=== PATIENT | female | born 1990 | race Caucasian/White ===

== ENCOUNTER 2020-09-01 20:00 | Emergency (ER) | payer MEDICAID ==
[~2020-09-01] VITALS: Ht 167.6 cm; Wt 78.0 kg
[2020-09-01 20:17] VITALS: BP 143/106
--- NOTE | 2020-09-01 20:21 | NUR ---
To ED bed 03
--- NOTE | 2020-09-01 20:30 | NUR ---
RECEIVED IN BED 3 WITH C/O VAGINAL BLEEDING . PT STATES SHE IS BUT DUE TO PRIOR CONTROL IS UNABLE TO DETERMINE LMP.
[2020-09-01 21:15] LABS: BASOPHILS % (AUTO) 0.2 % (0.0-2.0); EOSINOPHILS # (AUTO) 0.1 K/uL (0-0.4); EOSINOPHILS % (AUTO) 0.9 % (0.0-4.0); HEMATOCRIT 34.9 % (36-48); LYMPHOCYTES % (AUTO) 24.3 % (20.5-51.1); MEAN CORPUSCULAR HEMOGLOBIN 29 pg (27-31); MEAN CORPUSCULAR HGB CONC 34 g/dL (33-37); MEAN CORPUSCULAR VOLUME 85.2 fL (80-94); MONOCYTES # (AUTO) 0.7 K/uL (0.8-1.0); MONOCYTES % (AUTO) 5.7 % (1.7-9.3); NEUTROPHILS # (AUTO) 8.4 K/uL (1.8-7.7); NEUTROPHILS % (AUTO) 68.9 % (42.2-75.2); PLATELET COUNT (AUTO) 264 K/uL (140-450); RED CELL DISTRIBUTION WIDTH 13.1 % (11.6-13.7); WHITE BLOOD COUNT (AUTO) 12.2 K/uL (4.8-10.8)
[2020-09-01 21:32] LABS: ALBUMIN 3.7 g/dL (3.4-5.0); ANION GAP 11.7 (8-16); CARBON DIOXIDE 25.9 mmol/L (21-32); CREATININE 0.7 mg/dL (0.6-1.3); POTASSIUM 3.6 mmol/L (3.5-5.1); TOTAL BILIRUBIN 0.3 mg/dL (0.0-1.0)
--- NOTE | 2020-09-01 22:00 | NUR ---
UA OBTAINED, DIPPED, RESULTS TO CHART
[2020-09-01 22:12] LABS: APPEARANCE,URINE CLEAR (CLEAR); BILIRUBIN,URINE NEGATIVE (NEGATIVE); BLOOD, URINE TRACE-I (NEGATIVE); COLOR,URINE YELLOW (YELLOW); LEUKOCYTE ESTERASE ,URINE NEGATIVE (NEGATIVE); NITRITE, URINE NEGATIVE (NEGATIVE); PH,URINE 5.5 (5.0-9.0); UGLUCOSE NEGATIVE (NEGATIVE)
[2020-09-01 22:51] LABS: RBC,URINE 0-5 /HPF (0-5); WBC,URINE 0-5 /HPF (0-5)
[2020-09-01 23:25] VITALS: BP 143/106
--- NOTE | 2020-09-01 23:25 | NUR ---
Patient discharged with v/s stable. Written and verbal after care instructions given and explained. Patient verbalized understanding. Ambulatory with steady gait. All questions addressed prior to discharge. Advised to follow up with PMD.
== END 2020-09-01 23:25 | disposition home or self-care (01) ==
LOC: MED 20:00
DX: O46.8X1 Other antepartum hemorrhage, first trimester (principal); Z3A.01 Less than 8 weeks gestation of pregnancy
CPT/HCPCS: 36415; 76815; 76817; 80053; 81001; 81025; 84702; 85025; 86900; 86901; 87086; 99285

== ENCOUNTER 2020-09-03 11:06 | Emergency (ER) | payer MEDICAID ==
[~2020-09-03] VITALS: Ht 167.6 cm; Wt 77.6 kg
[2020-09-03 11:09] VITALS: BP 117/88
--- NOTE | 2020-09-03 11:10 | NUR ---
Patient to bed 8. RN evaluating the patient at bedside.
--- NOTE | 2020-09-03 11:50 | NUR ---
Dr. Osorio is evaluating the patient at bedside.
[2020-09-03 12:32] LABS: BASOPHILS % (AUTO) 0.3 % (0.0-2.0); EOSINOPHILS # (AUTO) 0.1 K/uL (0-0.4); EOSINOPHILS % (AUTO) 1.2 % (0.0-4.0); HEMATOCRIT 34.2 % (36-48); HEMOGLOBIN 11.8 g/dL (12.0-16.0); LYMPHOCYTES # (AUTO) 2.2 K/uL (2.5-16.5); LYMPHOCYTES % (AUTO) 25.5 % (20.5-51.1); MEAN CORPUSCULAR HEMOGLOBIN 30 pg (27-31); MEAN CORPUSCULAR HGB CONC 34 g/dL (33-37); MEAN CORPUSCULAR VOLUME 85.7 fL (80-94); MONOCYTES # (AUTO) 0.5 K/uL (0.8-1.0); MONOCYTES % (AUTO) 6.2 % (1.7-9.3); NEUTROPHILS # (AUTO) 5.8 K/uL (1.8-7.7); NEUTROPHILS % (AUTO) 66.8 % (42.2-75.2); PLATELET COUNT (AUTO) 249 K/uL (140-450); RED BLOOD CELL COUNT(AUTO) 3.99 MIL/uL (4.20-5.40); RED CELL DISTRIBUTION WIDTH 12.9 % (11.6-13.7); WHITE BLOOD COUNT (AUTO) 8.6 K/uL (4.8-10.8)
[2020-09-03] MEDS ORDERED: ACETAMINOPHEN EXTRA STRENGTH 500 MG TAB PO ONE (12:55)
--- NOTE | 2020-09-03 13:01 | NUR ---
US tech at bedside for exam.
[2020-09-03] MEDS ORDERED: IBUP-2213 PO ×2 (14:17→14:29)
[2020-09-03] MEDS ORDERED: [UNRECOGNIZED DRUG - CODE] PO ×2 (14:17→14:29)
[2020-09-03 14:34] VITALS: BP 113/68
== END 2020-09-03 14:30 | disposition home or self-care (01) ==
LOC: MED 11:06
DX: O03.4 Incomplete spontaneous abortion without complication (principal); Z79.899 Other long term (current) drug therapy; Z3A.01 Less than 8 weeks gestation of pregnancy
CPT/HCPCS: 36415; 76817; 81025; 84702; 85025; 99284

== ENCOUNTER 2020-11-08 12:11 | Emergency (ER) | payer MEDICAID ==
[~2020-11-08] VITALS: Ht 165.1 cm; Wt 78.9 kg
[~2020-11-08 12:11] MED LIST: IBUP-2213 PO; [UNRECOGNIZED DRUG - CODE] PO
[2020-11-08 12:28] VITALS: BP 145/74
--- NOTE | 2020-11-08 13:25 | NUR ---
PT TAKEN TO X RAY.
--- NOTE | 2020-11-08 13:28 | NUR ---
Cora iverson in EDM - 11/08/20 at 1331 by [facility] 30F BIB SELF C/O SOB, COUGH, FEVER ,RUNNY NOSE, HASORE X TODAY, TOOK TYLENOL AT 8AM.
--- NOTE | 2020-11-08 13:28 | NUR ---
30F BIB SELF C/O SOB, COUGH, FEVER ,RUNNY NOSE, HENRY & SORE THROAT X TODAY, TOOK TYLENOL AT 8AM.
--- NOTE | 2020-11-08 13:30 | NUR ---
COVID SWAB SENT TO LAB.
[2020-11-08] MEDS ORDERED: GUAI1TAB PO (14:46)
[2020-11-08] MEDS ORDERED: DEXAMETHASONE 4 MG TAB PO ONE (14:50)
[2020-11-08] MEDS ORDERED: DEXAMETHASONE 4 MG TAB ONE (14:51)
== END 2020-11-08 14:50 | disposition home or self-care (01) ==
LOC: MED 12:11
DX: B34.9 Viral infection, unspecified (principal); Z20.822 Contact with and (suspected) exposure to COVID-19; Z79.899 Other long term (current) drug therapy
CPT/HCPCS: 71045; 87426; 99284; U0003

== ENCOUNTER 2021-07-04 20:10 | Observation (INO) | payer MEDICAID, SELFPAY ==
[~2021-07-04] VITALS: Ht 167.6 cm; Wt 81.6 kg
[~2021-07-04 20:10] MED LIST changes: +GUAI1TAB PO
[2021-07-04] MEDS ORDERED: ACETAMINOPHEN 325 MG TAB PO SCH (21:15)
[2021-07-04] MEDS ORDERED: cefTRIAXone 1,000 MG in LIDOCAINE MPF 1% 2.1 ML IM SCH (21:15)
[2021-07-04] MEDS ORDERED: LIDOCAINE MPF 1% 10 MG/ML VIAL INJ SCH (21:15)
[2021-07-04] MEDS ORDERED: cefTRIAXone 1,000 MG VIAL ONE (21:23)
[2021-07-04] MEDS ORDERED: LIDOCAINE 1% 500 MG/50 ML VIAL ONE (21:24)
[2021-07-04] MEDS ORDERED: ACETAMINOPHEN 325 MG TAB ONE (21:27)
[2021-07-04 22:12] VITALS: BP 113/68
== END 2021-07-04 22:00 | disposition home or self-care (01) ==
LOC: MLD 20:10
PROVIDERS: ADMIT Obstetrics & Gynecology; ATTEND Obstetrics & Gynecology
DX: O23.43 Unspecified infection of urinary tract in pregnancy, third trimester (principal); N39.0 Urinary tract infection, site not specified; Z3A.31 31 weeks gestation of pregnancy
CPT/HCPCS: 59025; 81000; 96372; G0378; J0696; J2001

== ENCOUNTER 2021-09-03 09:30 | Inpatient (IN) | payer MEDICAID ==
[~2021-09-03] VITALS: Ht 167.6 cm; Wt 83.0 kg
[2021-09-03] MEDS ORDERED: ONDANSETRON 4 MG/2 ML VIAL IVP PRN (09:55)
[2021-09-03] MEDS ORDERED: OXYTOCIN 20 UNITS in LACTATED RINGERS 1,000 ML IV SCH (09:55)
[2021-09-03] MEDS ORDERED: MORPHINE SULFATE 5 MG/ML VIAL IVP PRN (09:55)
[2021-09-03 10:00] VITALS: BP 137/80
[2021-09-03 10:32] LABS: BASOPHILS % (AUTO) 0.1 % (0.0-2.0); EOSINOPHILS # (AUTO) 0.1 K/uL (0-0.4); EOSINOPHILS % (AUTO) 0.7 % (0.0-4.0); HEMATOCRIT 30.2 % (36-48); LYMPHOCYTES # (AUTO) 1.9 K/uL (2.5-16.5); LYMPHOCYTES % (AUTO) 21.2 % (20.5-51.1); MEAN CORPUSCULAR HEMOGLOBIN 26 pg (27-31); MEAN CORPUSCULAR HGB CONC 33 g/dL (33-37); MEAN CORPUSCULAR VOLUME 78.1 fL (80-94); MONOCYTES # (AUTO) 0.5 K/uL (0.8-1.0); MONOCYTES % (AUTO) 5.8 % (1.7-9.3); NEUTROPHILS # (AUTO) 6.6 K/uL (1.8-7.7); NEUTROPHILS % (AUTO) 72.2 % (42.2-75.2); PLATELET COUNT (AUTO) 247 K/uL (140-450); RED BLOOD CELL COUNT(AUTO) 3.86 MIL/uL (4.20-5.40); RED CELL DISTRIBUTION WIDTH 14.7 % (11.6-13.7); WHITE BLOOD COUNT (AUTO) 9.1 K/uL (4.8-10.8)
[2021-09-03 11:07] LABS: ALBUMIN 2.5 g/dL (3.4-5.0); ANION GAP 14.6 (8-16); CREATININE 0.6 mg/dL (0.6-1.3); POTASSIUM 3.6 mmol/L (3.5-5.1); TOTAL BILIRUBIN 0.3 mg/dL (0.0-1.0)
[2021-09-03 11:44] LABS: APPEARANCE,URINE CLEAR (CLEAR); BILIRUBIN,URINE NEGATIVE (NEGATIVE); BLOOD, URINE NEGATIVE (NEGATIVE); COLOR,URINE YELLOW (YELLOW); LEUKOCYTE ESTERASE ,URINE NEGATIVE (NEGATIVE); NITRITE, URINE NEGATIVE (NEGATIVE); UGLUCOSE NEGATIVE (NEGATIVE)
[2021-09-03] MEDS: LACTATED RINGERS 1,000 ML IV SCH ×2 (13:06→17:55)
[2021-09-03] MEDS ORDERED: MORPHINE SULFATE 10 MG/ML VIAL ONE (15:46)
[2021-09-03 15:52] VITALS: BP 135/69
[2021-09-03] MEDS ORDERED: ROPIVACAINE 0.2%/NS PREMIX 200 ML EPI ONE (17:54)
[2021-09-03] MEDS ORDERED: fentaNYL citrate 0.05 MG/ML VIAL ONE (17:55)
[2021-09-03] MEDS ORDERED: OXYTOCIN 20 UNITS/LR PREMIX 1,000 ML IV ONE (19:31)
[2021-09-03] MEDS ORDERED: TEMAZEPAM 15 MG CAP PO PRN (21:50)
[2021-09-03] MEDS ORDERED: METHYLERGONOVINE 0.2 MG TAB PO PRN (21:50)
[2021-09-03] MEDS ORDERED: OXYTOCIN 10 UNITS/ML VIAL IM PRN (21:50)
[2021-09-03] MEDS ORDERED: METHYLERGONOVINE 0.2 MG/ML AMP IM PRN (21:50)
[2021-09-03] MEDS ORDERED: BENZOCAINE/MENTHOL 20%-0.5% 60 GM CAN TP PRN (21:50)
[2021-09-03] MEDS ORDERED: oxyCODONE/APAP 5/325 MG 1 TAB TAB PO PRN (21:50)
[2021-09-04 05:13] LABS: HEMATOCRIT 29.4 % (36-48); HEMOGLOBIN 9.8 g/dL (12.0-16.0)
[2021-09-04] MEDS: IBUPROFEN 800 MG TAB PO PRN ×2 (05:33→13:16)
[2021-09-04] MEDS ORDERED: DOCUSATE SOD/SENNA 50/8.6 MG 1 TAB PO SCH (21:00)
[2021-09-04] MEDS: oxyCODONE/APAP 5/325 MG 1 TAB TAB PO PRN (21:06)
[2021-09-05] MEDS: IBUPROFEN 800 MG TAB PO PRN ×2 (04:19→12:25)
[2021-09-05] MEDS: oxyCODONE/APAP 5/325 MG 1 TAB TAB PO PRN (20:52)
== END 2021-09-05 23:00 | disposition home or self-care (01) | DRG 560 ==
LOC: MFCC 09:30 → OBSVTOIN 11:03 → MFCC 09-04 00:45
PROVIDERS: ADMIT Obstetrics & Gynecology; ATTEND Obstetrics & Gynecology
PROC: 10E0XZZ Delivery of Products of Conception, External Approach (ICD-10-PCS; principal; 2021-09-03)
PROC: 10907ZC Drainage of Amniotic Fluid, Therapeutic from Products of Conception, Via Natural or Artificial Opening (ICD-10-PCS; 2021-09-03)
PROC: 3E0R3BZ Introduction of Anesthetic Agent into Spinal Canal, Percutaneous Approach (ICD-10-PCS; 2021-09-03)
PROC: 00HU33Z Insertion of Infusion Device into Spinal Canal, Percutaneous Approach (ICD-10-PCS; 2021-09-03)
DX: O77.0 Labor and delivery complicated by meconium in amniotic fluid (principal); Z37.0 Single live birth; Z20.822 Contact with and (suspected) exposure to COVID-19; Z3A.39 39 weeks gestation of pregnancy
CPT/HCPCS: 36415; 51702; 59409; 80053; 81003; 85018; 85025; 85610; 85730; 86592; 86886; 86900; 86901; 90715; J2270; J2405; J2590; J2795; J3010

== ENCOUNTER 2022-11-26 17:25 | Emergency (ER) | payer MEDICAID ==
[~2022-11-26] VITALS: Ht 165.1 cm; Wt 81.6 kg
[2022-11-26 17:34] VITALS: BP 129/79; PULSE 90; RESP 20; TEMP 98.2; O2SAT 99
--- NOTE | 2022-11-26 17:58 | NUR ---
PA EVALUATING THE PT IN TRIAGE.
--- NOTE | 2022-11-26 17:59 | NUR ---
PT TAKEN TO RADIOLOGY FOR X-RAY.
[2022-11-26] MEDS ORDERED: IBUPROFEN 600 MG TAB PO ONE (19:30)
[2022-11-26] MEDS ORDERED: IBUP-2213 PO (19:34)
--- NOTE | 2022-11-26 19:52 | NUR ---
PER PT IS CERTAIN THAT SHE IS NOT AND IS WILLING TO TAKE IBUPROFEN WITHOUT A TEST
[2022-11-26 20:06] VITALS: BP 129/79; PULSE 90; RESP 20; TEMP 98.2; O2SAT 99
--- NOTE | 2022-11-26 20:06 | NUR ---
Pain reassessment to early to be done at this time due to discharge at 2006.
== END 2022-11-26 20:06 | disposition home or self-care (01) ==
LOC: MED 17:25
DX: S93.402A Sprain of unspecified ligament of left ankle, initial encounter (principal); S93.602A Unspecified sprain of left foot, initial encounter; R03.0 Elevated blood-pressure reading, without diagnosis of hypertension; Z90.49 Acquired absence of other specified parts of digestive tract; Z98.890 Other specified postprocedural states; Z79.899 Other long term (current) drug therapy; X58.XXXA Exposure to other specified factors, initial encounter; Y93.89 Activity, other specified; Y92.89 Other specified places as the place of occurrence of the external cause; Y99.8 Other external cause status
CPT/HCPCS: 29515; 73610; 73630; 99284

== ENCOUNTER 2023-10-07 20:25 | Emergency (ER) | payer MEDICAID ==
[~2023-10-07] VITALS: Ht 167.6 cm; Wt 86.6 kg
[~2023-10-07 20:25] MED LIST changes: -GUAI1TAB PO; -[UNRECOGNIZED DRUG - CODE] PO
[2023-10-07 20:26] VITALS: BP 138/90; PULSE 96; RESP 16; TEMP 97.8; O2SAT 100
[2023-10-07 20:38] VITALS: BP 138/90; PULSE 96; RESP 16; TEMP 97.8; O2SAT 100
[2023-10-07] MEDS: PROMETH/CODEINE 6.25-10MG/5ML 5 ML UDC PO ONE (20:54)
[2023-10-07] MEDS ORDERED: FLONAS NS (21:54)
[2023-10-07] MEDS ORDERED: ACET-2619 PO (21:54)
[2023-10-07] MEDS ORDERED: PROM118S5 PO (21:54)
== END 2023-10-07 22:06 | disposition home or self-care (01) ==
LOC: MED 20:25
DX: J06.9 Acute upper respiratory infection, unspecified (principal); Z79.899 Other long term (current) drug therapy
CPT/HCPCS: 71045; 99283

== ENCOUNTER 2024-01-03 12:57 | Emergency (ER) | payer MEDICAID ==
[~2024-01-03] VITALS: Ht 165.1 cm; Wt 85.7 kg
[~2024-01-03 12:57] MED LIST changes: +ACET-2619 PO; +FLONAS NS; +PROM118S5 PO
[2024-01-03 13:07] VITALS: BP 147/84; PULSE 81; RESP 18; TEMP 98.8; O2SAT 100
[2024-01-03] MEDS: LIDOCAINE MPF 1% 10 MG/ML VIAL INJ ONE (14:36)
[2024-01-03] MEDS: IBUPROFEN 600 MG TAB PO ONE (14:37)
[2024-01-03] MEDS ORDERED: IBUP-1842 PO (15:02)
--- NOTE | 2024-01-03 15:19 | NUR ---
Patient discharged with v/s stable. Written and verbal after care instructions given FOR LACERATION CARE,SUTURED WOUND Patient alert, oriented and verbalized understanding of instructions. Ambulatory with steady gait. All questions addressed prior to discharge. ID band removed. Patient advised to follow up with PMD. Rx of MOTRIN given. Opportunity to ask questions provided and answered.
== END 2024-01-03 15:19 | disposition home or self-care (01) ==
LOC: MED 12:57
DX: S61.411A Laceration without foreign body of right hand, initial encounter (principal); Z79.1 Long term (current) use of non-steroidal anti-inflammatories (NSAID); Z79.899 Other long term (current) drug therapy; W25.XXXA Contact with sharp glass, initial encounter; Y93.G9 Activity, other involving cooking and grilling; Y92.89 Other specified places as the place of occurrence of the external cause; Y99.8 Other external cause status
CPT/HCPCS: 12001; 73120; 90471; 90715; 99283; J2001

== ENCOUNTER 2024-01-05 16:37 | Emergency (ER) | payer MEDICAID ==
[~2024-01-05] VITALS: Ht 167.6 cm; Wt 85.3 kg
[~2024-01-05 16:37] MED LIST changes: +IBUP-1842 PO
[2024-01-05 17:02] VITALS: BP 108/69; PULSE 84; RESP 18; TEMP 98.3; O2SAT 99
[2024-01-05] MEDS ORDERED: IBUP-2213 PO (17:23)
[2024-01-05] MEDS ORDERED: CEPH-588 PO (17:23)
[2024-01-05 17:38] VITALS: BP 108/69; PULSE 84; RESP 18; TEMP 98.3; O2SAT 99
== END 2024-01-05 17:38 | disposition home or self-care (01) ==
LOC: MED 16:37
DX: S61.411A Laceration without foreign body of right hand, initial encounter (principal); Z79.899 Other long term (current) drug therapy; W25.XXXA Contact with sharp glass, initial encounter; Y93.89 Activity, other specified; Y92.89 Other specified places as the place of occurrence of the external cause; Y99.8 Other external cause status
CPT/HCPCS: 99283

== ENCOUNTER 2024-01-07 12:09 | Emergency (ER) | payer MEDICAID ==
[~2024-01-07] VITALS: Ht 167.6 cm; Wt 85.8 kg
[~2024-01-07 12:09] MED LIST changes: +CEPH-588 PO
[2024-01-07 12:23] VITALS: BP 118/73; PULSE 77; RESP 17; TEMP 98.1; O2SAT 98
[2024-01-07 12:44] VITALS: BP 118/73; PULSE 77; RESP 17; TEMP 98.1; O2SAT 98
== END 2024-01-07 12:44 | disposition home or self-care (01) ==
LOC: MED 12:09
DX: S61.411D Laceration without foreign body of right hand, subsequent encounter (principal); Z48.00 Encounter for change or removal of nonsurgical wound dressing; Z79.899 Other long term (current) drug therapy; X58.XXXD Exposure to other specified factors, subsequent encounter
CPT/HCPCS: 99282